=== PATIENT | male | born 1960 | race African-American/Black ===

== ENCOUNTER 2019-06-20 19:20 | Emergency (ER) | payer MEDICAID ==
[~2019-06-20] VITALS: Ht 162.6 cm; Wt 72.6 kg
--- NOTE | 2019-06-20 19:30 | NUR ---
ED Nurse Note: PT WALKED IN ACCOMPANIED BY PRIMARY PLANT CONTROLLER C/O VOMITTING, CLAYTON, AND LETHARGY. PLANT CONTROLLER STATS PT IS DEVELOPMENTALLY CHALLENGED. PT IS NONVERBAL BUT FOLLOWS COMMAND. PLANT CONTROLLER STATES PT VOMITTED X5 TODAY AND SEEMED MORE LETHARGIC THAN USUAL. PT VSS, NAD. WILL CONTINUE TO MONITOR PATIENT.
[2019-06-20] MEDS ORDERED: AMBIEN5 MG ORAL (19:33)
[2019-06-20] MEDS ORDERED: LIPITOR80 MG ORAL (19:33)
[2019-06-20] MEDS ORDERED: HYDROCHLOROTHIA25 MG ORAL (19:33)
[2019-06-20] MEDS ORDERED: METFORMIN HCL5000 GM MC (19:33)
[2019-06-20] MEDS ORDERED: GLIPIZIDE10 MG PO (19:33)
[2019-06-20] MEDS ORDERED: ASPIR 8181 MG ORAL (19:33)
[2019-06-20] MEDS ORDERED: ZIPRASIDONE HCL80 MG ORAL (19:33)
[2019-06-20] MEDS ORDERED: BENZTROPINE2 MG/2 ML IJ (19:33)
--- NOTE | 2019-06-20 19:48 | NUR ---
ED Nurse Note: ERMD AT BEDSIDE.
[2019-06-20] MEDS ORDERED: Sodium Chloride 2,200 ML IVLG ONE (20:15)
[2019-06-20 20:17] LABS: HEMATOCRIT 47.6 % (42.0-52.0); HEMOGLOBIN 16.2 G/DL (14.2-18.0); MEAN CORPUSCULAR VOLUME 87 FL (80-99); PLATELET COUNT 275 K/UL (150-450); RED BLOOD COUNT 5.48 M/UL (4.70-6.10); RED CELL DISTRIBUTION WIDTH 9.9 % (11.6-14.8); WHITE BLOOD COUNT 12.1 K/UL (4.8-10.8)
--- NOTE | 2019-06-20 20:18 | NUR ---
ED Nurse Note: IV ESTABLISHED ON RIGHT AC 20G. BLOOD DRAWN AND SENT TO LAB. LINE INTACT AND PATENT.
--- NOTE | 2019-06-20 20:31 | Emergency Room Report ---
History of Present Illness General Chief Complaint: Flu Like Symptoms Source: Patient Present Illness HPI Disclaimer: Please note that this report is being documented using DRAGON technology. This can lead to erroneous entry secondary to incorrect interpretation by the dictating instrument. HPI: 58-year-old male with history of schizophrenia, autism spectrum, nonverbal at baseline presents for evaluation of headache and diarrhea. According to caretakers from his assisted living facility he has been increasingly somnolent and lethargic over the past day. They note vomiting, diarrhea and increased trips to the bathroom. Not eating or drinking much today. He keeps pointing to his head. They believe this indicates a headache. They deny fever noted at home. Otherwise he has not shown outward signs of discomfort. Patient cannot provide any history. PMH: Schizophrenia, nonverbal PSH: Caretakers do not know Allergies: None reported Social Hx: None reported Allergies: Coded Allergies: No Known Allergies (Unverified , 06/20/19) Nursing Documentation-PMH Hx Cardiac Problems: No - hyper cholesterol; Hx Diabetes: Yes History Of Psychiatric Problem: Yes - EPS; Insomnia Review of Systems All Other Systems: limited - Patient is nonverbal Physical Exam Vital Signs Date Time Temp Pulse Resp B/P (MAP) Pulse Ox O2 Delivery O2 Flow Rate FiO2 06/20/19 19:22 98.4 116 18 101/65 (77) 97 Room Air General: Sleeping comfortably on arrival but awakens easily HEENT: NC/AT. EOMI. PERRLA. Pupils are 4 mm and reactive bilaterally. Moist mucous membranes. Uvula midline. No significant pharyngeal edema or erythema Neck: Supple, trachea midline Chest Wall: No tenderness, no deformity Cardiovascular: Tachycardic. S1 and S2 normal. No murmur appreciated Resp: Normal work of breathing. No cough, wheezing or crackles appreciated Abdomen: Abdomen is soft, nondistended. Nontender, no rebound, no masses Skin: Intact. No abrasions, laceration or rash over the exposed skin MSK: Normal tone and bulk. Moving all extremities. No obvious deformity. Neuro: Awake and alert. Mentating appropriately. Medical Decision Making Diagnostic Impression: Primary Impression: Dehydration Additional Impression: Vomiting ER Course This is a 58-year-old male, nonverbal at baseline, presenting from his assisted living facility for evaluation of vomiting, diarrhea and headache. Patient arrives tachycardic but otherwise vital signs are within normal limits. He is afebrile. No reproducible tenderness or outward signs of distress on deep palpation of the patient's abdomen. Given his reported head gesturing will obtain a CT scan as a patient cannot give us any history. Additionally, we will start a broad metabolic infectious work-up. IV fluids started. Antiemetics ordered. Laboratory Tests Test 06/20/19 19:55 06/20/19 20:18 06/20/19 21:33 White Blood Count 12.1 K/UL (4.8-10.8) H Red Blood Count 5.48 M/UL (4.70-6.10) Hemoglobin 16.2 G/DL (14.2-18.0) Hematocrit 47.6 % (42.0-52.0) Mean Corpuscular Volume 87 FL (80-99) Mean Corpuscular Hemoglobin 29.6 PG (27.0-31.0) Mean Corpuscular Hemoglobin Concent 34.1 G/DL (32.0-36.0) Red Cell Distribution Width 9.9 % (11.6-14.8) L Platelet Count 275 K/UL (150-450) Mean Platelet Volume 6.3 FL (6.5-10.1) L Neutrophils (%) (Auto) % (45.0-75.0) Lymphocytes (%) (Auto) % (20.0-45.0) Monocytes (%) (Auto) % (1.0-10.0) Eosinophils (%) (Auto) % (0.0-3.0) Basophils (%) (Auto) % (0.0-2.0) Differential Total Cells Counted 100 Neutrophils % (Manual) 83 % (45-75) H Lymphocytes % (Manual) 5 % (20-45) L Monocytes % (Manual) 5 % (1-10) Eosinophils % (Manual) 0 % (0-3) Basophils % (Manual) 1 % (0-2) Band Neutrophils 6 % (0-8) Platelet Estimate Adequate Platelet Morphology Normal Red Blood Cell Morphology Normal Sodium Level 139 MMOL/L (136-145) Potassium Level 3.3 MMOL/L (3.5-5.1) L Chloride Level 101 MMOL/L (98-107) Carbon Dioxide Level 22 MMOL/L (21-32) Anion Gap 16 mmol/L (5-15) H Blood Urea Nitrogen 20 mg/dL (7-18) H Creatinine 1.1 MG/DL (0.55-1.30) Estimate Glomerular Filtration Rate > 60 mL/min (>60) Glucose Level 119 MG/DL (74-106) H Calcium Level 8.4 MG/DL (8.5-10.1) L Phosphorus Level 2.5 MG/DL (2.5-4.9) Magnesium Level 1.6 MG/DL (1.8-2.4) L Total Bilirubin 0.4 MG/DL (0.2-1.0) Aspartate Amino Transferase (AST) 44 U/L (15-37) H Alanine Aminotransferase (ALT) 58 U/L (12-78) Alkaline Phosphatase 98 U/L (46-116) Total Creatine Kinase 87 U/L (26-308) Creatine Kinase MB 0.5 NG/ML (0.0-3.6) Creatine Kinase MB Relative Index 0.5 Troponin I 0.000 ng/mL (0.000-0.056) Total Protein 8.5 G/DL (6.4-8.2) H Albumin 3.8 G/DL (3.4-5.0) Globulin 4.7 g/dL Albumin/Globulin Ratio 0.8 (1.0-2.7) L Lactic Acid Level 2.00 mmol/L (0.4-2.0) Urine Color Pale yellow Urine Appearance Clear Urine pH 5 (4.5-8.0) Urine Specific [place] 1.015 (1.005-1.035) Urine Protein 1+ (NEGATIVE) H Urine Glucose (UA) Negative (NEGATIVE) Urine Ketones Negative (NEGATIVE) Urine Blood 1+ (NEGATIVE) H Urine Nitrite Negative (NEGATIVE) Urine Bilirubin Negative (NEGATIVE) Urine Urobilinogen Normal MG/DL (0.0-1.0) Urine Leukocyte Esterase Negative (NEGATIVE) Urine RBC 2-4 /HPF (0 - 0) H Urine WBC 0 /HPF (0 - 0) Urine Squamous Epithelial Cells None /LPF (NONE/OCC) Urine Bacteria Occasional /HPF (NONE) Urine Mucus Moderate /LPF (NONE/OCC) H Microbiology Date/Time Source Procedure Growth Status 06/20/19 20:10 Nasal Nares - Final Complete 06/20/19 20:10 Nasal Nares - Final Complete EKG Diagnostic Results EKG Time: 20:09 Rhythm: NSR ST Segments: no acute changes Other Impression Sinus tachycardia, normal axis, normal intervals, nonspecific ST changes Rhythm Strip Diag. Results Rhythm Strip Time: 20:09 EP Interpretation: yes Rate: 110s Rhythm: no PVC's, no ectopy Chest X-Ray Diagnostic Results Chest X-Ray Diagnostic Results : Chest X-Ray Ordered: Yes # of Views/Limited/Complete: 1 View Indication: Other EP Interpretation: Yes Interpretation: no consolidation, no effusion, no pneumothorax, no acute cardiopulmonary disease Impression: No acute disease Electronically Signed by: Electronically signed by Dr. Dano Deng CT/MRI/US Diagnostic Results CT/MRI/US Diagnostic Results : Impression Preliminary Findings Only See Final Report For Complete Findings CT HEAD Without Contrast: There is no acute hemorrhage, infarct, mass, hydrocephalus. The calvarium is intact. Radiologist: Irlanda Pedersen MD Reevaluation Time: 22:23 Last Vital Signs Date Time Temp Pulse Resp B/P (MAP) Pulse Ox O2 Delivery O2 Flow Rate FiO2 06/20/19 19:22 98.4 116 18 101/65 (77) 97 Room Air Reevaluation Impression CT head is negative for acute bleed or injury. EKG shows sinus tachycardia and chest x-ray unremarkable. No obvious infiltrates or effusions. Labs have returned largely within normal limits. Slight elevation in white count and neutrophil predominance but patient remains afebrile. He is received IV fluids and tachycardia is resolved. Lactate 2.0 prior to fluids. Urinalysis unremarkable. Slight elevation in BUN with a normal creatinine of 1.1. Is consistent with mild dehydration the patient has been receiving IV fluids. He is more awake and alert than on initial assessment. He did receive Toradol and seems to have improved. Flu swabs are negative. Overall he is well-appearing, labs largely within normal limits and responding to IV fluids. May be viral GI syndrome causing mild dehydration given his frequent trips to the bathroom and reported vomiting. He will be treated symptomatically with Zofran. He can follow-up with his PMD on an outpatient basis. [facility] with [facility]. He is to return to the emergency department any new or worsening symptoms. Disposition: ASSISTED LIVING Condition: Stable Scripts Ondansetron Odt* (ZOFRAN ODT*) 4 Mg Tab.rapdis 4 MG BC EVERY 6 HOURS PRN for Nausea & Vomiting, #10 TAB 0 Refills Prov: Dano Deng MD 06/20/19 Dano Deng MD Jun 20, 2019 20:31
[2019-06-20 20:32] LABS: ANION GAP 16 mmol/L (5-15); BLOOD UREA NITROGEN 20 mg/dL (7-18); CALCIUM 8.4 MG/DL (8.5-10.1); CARBON DIOXIDE 22 MMOL/L (21-32); CHLORIDE 101 MMOL/L (98-107); CREATININE 1.1 MG/DL (0.55-1.30); POTASSIUM 3.3 MMOL/L (3.5-5.1); SODIUM 139 MMOL/L (136-145)
[2019-06-20 20:44] LABS: ALANINE AMINOTRANSFERASE 58 U/L (12-78); ALBUMIN 3.8 G/DL (3.4-5.0); ALBUMIN/GLOBULIN RATIO 0.8 (1.0-2.7); ALKALINE PHOSPHATASE 98 U/L (46-116); ASPARTATE AMINO TRANSFERASE 44 U/L (15-37); BILIRUBIN,TOTAL 0.4 MG/DL (0.2-1.0); CKMB 0.5 NG/ML (0.0-3.6); CREATINE KINASE 87 U/L (26-308); PHOSPHORUS 2.5 MG/DL (2.5-4.9)
[2019-06-20 20:49] VITALS: BP 109/67
--- NOTE | 2019-06-20 21:09 | NUR ---
ED Nurse Note: PT WENT FOR CT VIA WHEELCHAIR ACCOMPANIED BY OFFICE CLERK ASSISTANT.
--- NOTE | 2019-06-20 21:16 | NUR ---
ED Nurse Note: pt back from CT via wheelchair accompanied by registered radiation therapist
--- NOTE | 2019-06-20 21:20 | NUR ---
ED Nurse Note: URINE COLLECTED AND SENT TO LAB.
--- NOTE | 2019-06-20 21:30 | Diagnostic Imaging Report ---
Indications: Altered mental status Technique: Spiral acquisitions obtained through the brain. Angled axial and coronal 5 x 5 mm slices were reconstructed. Total dose length product 1376 mGycm. CTDI vol(s) 62 mGy. Dose reduction achieved using automated exposure control Comparison: None. Findings: There is mild prominence of the ventricles and extra axial CSF spaces. No acute intracranial hemorrhage or edema. No mass effect nor midline shift. Normal zamarripa-white differentiation. Intact calvarium. Visualized orbits and sinuses are unremarkable. The mastoids are clear Impression: Negative for acute intracranial bleed or mass effect This agrees with the preliminary interpretation provided overnight by [facility] teleradiology service. The CT scanner at [facility] is accredited by the [employer] and the scans are performed using protocols designed to limit radiation exposure to as low as reasonably achievable to attain images of sufficient resolution adequate for diagnostic evaluation.
[2019-06-20 21:44] LABS: APPEARANCE,URINE CLEAR; BILIRUBIN, URINE NEGATIVE (NEGATIVE); COLOR,URINE PALE YELLOW; GLUCOSE, URINE (UA) NEGATIVE (NEGATIVE); KETONES,URINE NEGATIVE (NEGATIVE); LEUKOCYTE ESTERASE ,URINE NEGATIVE (NEGATIVE); NITRITE,URINE NEGATIVE (NEGATIVE); PH,URINE 5 (4.5-8.0); PROTEIN,URINE 1+ (NEGATIVE); UROBILINOGEN,URINE NORMAL MG/DL (0.0-1.0)
[2019-06-20] MEDS ORDERED: Ketorolac 30mg Inj IV ONE (21:45)
[2019-06-20] MEDS ORDERED: ONDANSETRON ODT4 MG BC (22:04)
[2019-06-20 23:05] VITALS: BP 121/61
--- NOTE | 2019-06-20 23:05 | NUR ---
ER DISCHARGE NOTE: Patient is cleared to be discharged per ERMD, pt is aox4, on room air, with stable vital signs. pt palliative care nurse was given dc and prescription instructions, pt palliative care nurse was able to verbalize understanding, pt id band and iv site removed without complications. pt is able to ambulate with steady gait. pt palliative care nurse took all belongings.
--- NOTE | 2019-06-20 23:05 | NUR ---
Note jose g in EDM - 06/21/19 at 0012 by [email or web address] ED Nurse Note: PT WALKED IN ACCOMPANIED BY PRIMARY BATTER DEPOSITOR C/O VOMITTING, CLAYTON, AND LETHARGY. BATTER DEPOSITOR STATS PT IS DEVELOPMENTALLY CHALLENGED. PT IS NONVERBAL BUT FOLLOWS COMMAND. BATTER DEPOSITOR STATES PT VOMITTED X5 TODAY AND SEEMED MORE LETHARGIC THAN USUAL. PT VSS, NAD. WILL CONTINUE TO MONITOR PATIENT.
--- NOTE | 2019-06-21 09:58 | Diagnostic Imaging Report ---
Indication: Shortness of breath Technique: One view of the chest Comparison: none Findings: Inspiration is suboptimal. Lungs and pleural spaces are clear. The heart size is normal Impression: No acute process
== END 2019-06-20 23:05 | disposition home or self-care (01) ==
LOC: EMR 19:50
DX: E86.0 Dehydration (principal); R11.10 Vomiting, unspecified; G47.00 Insomnia, unspecified; E11.9 Type 2 diabetes mellitus without complications; E78.00 Pure hypercholesterolemia, unspecified; F20.9 Schizophrenia, unspecified; R00.0 Tachycardia, unspecified
CPT/HCPCS: 36415; 70450; 71045; 80053; 81003; 82550; 82553; 82962; 83605; 83735; 84100; 84484; 85007; 85025; 86710; 87040; 93005; 96361; 96374; 96375; J1885; J2405; Z7502; 99284